=== PATIENT | male | born 1970 | race Caucasian/White ===

== ENCOUNTER 2016-12-28 07:28 | Emergency (ER) | payer SELFPAY ==
[~2016-12-28] VITALS: Ht 175.3 cm; Wt 150.0 kg
[~2016-12-28 07:28] MED LIST: BACT800T5 PO; CLIN1CAP5 PO; INDO50CA PO
[2016-12-28 07:29] VITALS: BP 172/78; PULSE 73; RESP 14; TEMP 98.6; O2SAT 97
[2016-12-28] MEDS ORDERED: LISI10TA3 PO (07:47)
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
[2016-12-28] MEDS ORDERED: KETOROLAC TROMETHAMINE 60 MG/2 ML (IM) VIAL IM ONE (08:00)
--- NOTE | 2016-12-28 08:30 | RADRPT ---
EXAM DATE/TIME: 12/28/2016 08:13 [facility] COMPARISON: FOREARM RIGHT (2VWS), July 10, 2016, 17:04. INDICATIONS : Pain in left knee anterior side near patella region. MEDICAL HISTORY : None. SURGICAL HISTORY : None. ENCOUNTER: Initial ACUITY: 3 days PAIN SCORE: 5/10 LOCATION: Left knee FINDINGS: The osseous structures are intact. No acute fracture is seen. The alignment is anatomic. There are mi ld degenerative changes in the patellofemoral joint. No significant joint effusion is evident. CONCLUSION: 1. Mild degenerative changes in the patellofemoral joint. No acute bony abnormality. Carlos Nayak MD on December 28, 2016 at 8:28 Board Certified Radiologist. This report was verified electronically.
[2016-12-28] MEDS ORDERED: IBUP800T23 PO (08:49)
== END 2016-12-28 09:03 | disposition home or self-care (01) ==
LOC: NEPB 07:28
DX: M25.562 Pain in left knee (principal); I10 Essential (primary) hypertension; F17.220 Nicotine dependence, chewing tobacco, uncomplicated
CPT/HCPCS: 73564; 96372; 99283; J1885

== ENCOUNTER 2017-07-30 13:26 | Emergency (ER) | payer SELFPAY ==
[~2017-07-30] VITALS: Ht 175.3 cm; Wt 120.0 kg
[~2017-07-30 13:26] MED LIST changes: -BACT800T5 PO; -CLIN1CAP5 PO; +IBUP800T23 PO; -INDO50CA PO; +LISI10TA3 PO
[2017-07-30 13:29] VITALS: BP 204/89; PULSE 86; RESP 16; TEMP 98.9; O2SAT 96
[2017-07-30 14:03] VITALS: BP 155/103
[2017-07-30] MEDS ORDERED: TETANUS/DIPHTHERIA TOXOID ADULT 0.5 ML VIAL IM ONE (14:15)
[2017-07-30] MEDS ORDERED: BACTROBAN OINTMENT TOPICAL (14:16)
[2017-07-30] MEDS ORDERED: BACT800T5 PO (14:16)
[2017-07-30] MEDS ORDERED: LISI10TA3 PO (14:16)
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
== END 2017-07-30 15:58 | disposition home or self-care (01) ==
LOC: NEPD 13:26
DX: S91.309A Unspecified open wound, unspecified foot, initial encounter (principal); I10 Essential (primary) hypertension; Z72.0 Tobacco use; Z23 Encounter for immunization; X58.XXXA Exposure to other specified factors, initial encounter
CPT/HCPCS: 90471; 90714

== ENCOUNTER 2018-03-09 09:05 | Emergency (ER) | payer OTHER ==
[~2018-03-09 09:05] MED LIST changes: +BACT800T5 PO; +BACTROBAN OINTMENT TOPICAL; +IBUP1TAB7 PO; -IBUP800T23 PO
[2018-03-09 09:10] VITALS: BP 228/101; PULSE 65; RESP 16; TEMP 98.4; O2SAT 98
[2018-03-09 09:39] VITALS: BP 171/77; PULSE 67
[2018-03-09] MEDS ORDERED: METHOCARBAMOL 500 MG TAB PO ONE (09:45)
[2018-03-09] MEDS ORDERED: IBUPROFEN 800 MG TAB PO ONE (09:45)
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
[2018-03-09] MEDS ORDERED: ROBA500T PO (12:44)
[2018-03-09] MEDS ORDERED: IBUP1TAB7 PO (12:44)
== END 2018-03-09 13:06 | disposition home or self-care (01) ==
LOC: NEPD 09:05
DX: S20.212A Contusion of left front wall of thorax, initial encounter (principal); S46.819A Strain of other muscles, fascia and tendons at shoulder and upper arm level, unspecified arm, initial encounter; S16.1XXA Strain of muscle, fascia and tendon at neck level, initial encounter; I10 Essential (primary) hypertension; V49.49XA Driver injured in collision with other motor vehicles in traffic accident, initial encounter; Y92.410 Unspecified street and highway as the place of occurrence of the external cause; Z72.0 Tobacco use; Z88.0 Allergy status to penicillin
CPT/HCPCS: 71101; 99283

== ENCOUNTER 2018-03-20 08:51 | Emergency (ER) | payer SELFPAY ==
[~2018-03-20] VITALS: Ht 175.3 cm; Wt 164.0 kg
[~2018-03-20 08:51] MED LIST changes: -BACT800T5 PO; -BACTROBAN OINTMENT TOPICAL; +ROBA500T PO
[2018-03-20 08:54] VITALS: BP 199/96; PULSE 76; RESP 16; TEMP 99.6; O2SAT 94
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
[2018-03-20] MEDS ORDERED: SODIUM CHLORIDE 0.9% FLUSH 10 ML FLUSH IV FLUSH PRN (09:15)
[2018-03-20 09:22] VITALS: BP 206/97; PULSE 73; RESP 17; O2SAT 97
[2018-03-20] MEDS ORDERED: LISINOPRIL 10 MG TAB PO ONE (09:30)
[2018-03-20 09:35] LABS: AUTOMATED NEUTROPHIL # 7.9 TH/MM3 (1.8-7.7); BASOPHIL # 0.1 TH/MM3 (0-0.2); BASOPHIL % 0.7 % (0.0-2.0); EOSINOPHIL # 0.2 TH/MM3 (0-0.4); EOSINOPHIL % 2.2 % (0.0-4.0); HEMATOCRIT 34.5 % (39.0-51.0); HEMOGLOBIN 12.1 GM/DL (13.0-17.0); LYMPH % 14.1 % (9.0-44.0); LYMPHOCYTE # 1.4 TH/MM3 (1.0-4.8); MEAN CORPUSCULAR HEMOGLOBIN 30.1 PG (27.0-34.0); MEAN CORPUSCULAR HGB CONC 34.9 % (32.0-36.0); MEAN PLATELET VOLUME 7.8 FL (7.0-11.0); MONO % 4.5 % (0.0-8.0); MONOCYTE # 0.5 TH/MM3 (0-0.9); NEUT % 78.5 % (16.0-70.0); PLATELET COUNT 259 TH/MM3 (150-450); RED BLOOD COUNT 4.01 MIL/MM3 (4.50-5.90); RED CELL DISTRIBUTION WIDTH 13.4 % (11.6-17.2)
[2018-03-20 09:37] LABS: BACTERIA, URINE MOD /hpf; BILIRUBIN, URINE NEG (NEG); BLOOD, URINE MOD (NEG); GLUCOSE,URINE NEG (NEG); KETONE, URINE NEG (NEG); MUCUS URINE FEW /lpf (OCC); NITRITE,URINE POS (NEG); PH, URINE 5.5 (5.0-8.5); URINE COLOR LIGHT-YELLOW (YELLW/STRAW); URINE LEUKOCYTE ESTERASE LARGE (NEG); WHITE BLOOD CELL CLUMPS FEW
[2018-03-20 09:51] LABS: ALBUMIN 3.2 GM/DL (3.4-5.0); AST (GOT) 22 U/L (15-37); BICARBONATE 23.5 MEQ/L (21.0-32.0); BLOOD UREA NITROGEN 13 MG/DL (7-18); CALCIUM 8.6 MG/DL (8.5-10.1); CHLORIDE 109 MEQ/L (98-107); CREATININE 0.79 MG/DL (0.60-1.30); GLOMERULAR FILTRATION RATE 104 ML/MIN (>89); GLUCOSE,RANDOM 163 MG/DL (74-106); SODIUM (NA) 141 MEQ/L (136-145)
[2018-03-20 09:52] LABS: ALT (GPT) 34 U/L (12-78)
[2018-03-20 09:54] LABS: ALKALINE PHOSPHATASE 74 U/L (45-117); TOTAL BILIRUBIN ADULT 0.5 MG/DL (0.2-1.0); TOTAL PROTEIN 7.1 GM/DL (6.4-8.2)
--- NOTE | 2018-03-20 09:58 | RADRPT ---
EXAM DATE/TIME: 03/20/2018 09:25 [facility] COMPARISON: No previous studies available for comparison. INDICATIONS : Right flank pain and dysuria for one week. ORAL CONTRAST: No oral contrast ingested. RADIATION DOSE: 19.43 CTDIvol (mGy) ; Patient body habitus MEDICAL HISTORY : Hypertension. SURGICAL HISTORY : Tonsillectomy. ENCOUNTER: Initial ACUITY: 1 week PAIN SCALE: 6/10 LOCATION: Right flank TECHNIQUE: Volumetric scanning of the abdomen and pelvis was performed. Using automated exposure control and ad justment of the mA and/or kV according to patient size, radiation dose was kept as low as reasonably achievable to obtain optimal diagnostic quality images. DICOM format image data is available electro nically for review and comparison. FINDINGS: Examination quality mildly degraded by patient body habitus. LOWER LUNGS: The visualized lower lungs are clear. LIVER: Homogeneous density without lesion. There is no dilation of the biliary tree. No calcified gallston es. SPLEEN: Normal size without lesion. PANCREAS: Within normal limits. KIDNEYS: Normal in size and shape. There is no mass or stone. There is distended collecting system bilaterall y, right greater than left with abrupt caliber change at the ureteropelvic junction. There is mild st randing surrounding the proximal and mid right ureter. The right ureter is normal in size. No uretera l stone is visualized. ADRENAL GLANDS: Within normal limits. VASCULAR: There is no aortic aneurysm. BOWEL/MESENTERY: The stomach, small bowel, and colon demonstrate no acute abnormality. There is no free intraperitone al air or fluid. There is a periampullary duodenal diverticulum. ABDOMINAL WALL: Within normal limits. RETROPERITONEUM: There is no lymphadenopathy. BLADDER: No wall thickening or mass. REPRODUCTIVE: Within normal limits. INGUINAL: There is no lymphadenopathy or hernia. MUSCULOSKELETAL: There are degenerative changes of the lumbar spine. CONCLUSION: 1. No renal stones are identified. There are is mild hydronephrosis bilaterally, right greater than l eft. There appears to be abrupt caliber change at the ureteropelvic junctions which could indicate UP J stenosis. No ureteral stone is identified. Consider followup to assess for change. 2. Remainder of the examination demonstrates no acute finding. Andrew Pelletier MD on March 20, 2018 at 9:51 Board Certified Radiologist. This report was verified electronically.
[2018-03-20 10:00] VITALS: BP 197/89; PULSE 66; RESP 14; O2SAT 98
[2018-03-20 10:30] VITALS: BP 180/82; PULSE 62; RESP 24; O2SAT 95
[2018-03-20] MEDS ORDERED: SULFAMETHOXAZOLE-TRIMETHOPRIM DS 800-160 MG TAB PO ONE (10:30)
[2018-03-20] MEDS ORDERED: LISI10TA3 PO (10:49)
[2018-03-20] MEDS ORDERED: BACT800T5 PO (10:49)
== END 2018-03-20 11:37 | disposition home or self-care (01) ==
LOC: NEPE 08:51
DX: N39.0 Urinary tract infection, site not specified (principal); I10 Essential (primary) hypertension; F17.220 Nicotine dependence, chewing tobacco, uncomplicated
CPT/HCPCS: 74176; 80053; 81001; 85025; 87077; 87086; 87186; 99284